=== PATIENT | male | born 1995 | race Caucasian/White ===

== ENCOUNTER 2022-10-14 19:44 | Inpatient (IN) | payer MEDICARE ==
[~2022-10-14] VITALS: Ht 180.3 cm; Wt 90.7 kg
[2022-10-14] MEDS ORDERED: MAGNESIUM/ALUMINUM HYDROXIDE/SIMETHICONE 30ML UDC PO STA (23:21)
[2022-10-14] MEDS ORDERED: ONDANSETRON 4MG ODT PO STA (23:21)
[2022-10-14] MEDS ORDERED: VISCOUS LIDOCAINE 2% 15 ML UDC PO STA (23:21)
[2022-10-14 23:44] LABS: PROTHROMBIN TIME 10.9 sec (9.6-11.0)
[2022-10-14 23:58] LABS: HEMATOCRIT. 46.1 % (42.0-52.0); HEMOGLOBIN. 15.4 g/dL (14.0-18.0); MEAN CORPUSCULAR VOLUME 86.5 fL (80.0-94.0); MEAN PLATELET VOLUME 9.4 fl (7.4-10.4); PLATELET 263 x1000/uL (130-400); RED BLOOD CELL COUNT 5.33 mill/uL (4.7-6.1)
[2022-10-15 00:10] LABS: CHLORIDE 106 mEq/L (98-107)
[2022-10-15 00:18] LABS: ETHANOL BLOOD < 10 mg/dL
[2022-10-15 01:01] LABS: *AMPHETAMINES SCREEN URINE NEGATIVE (NEGATIVE); *BARBITURATES SCREEN URINE NEGATIVE (NEGATIVE); *BENZODIAZEPINES SCREEN URINE NEGATIVE (NEGATIVE); *COCAINE SCREEN URINE NEGATIVE (NEGATIVE); CANNABINOID URINE SCREEN NEGATIVE (NEGATIVE); METHADONE URINE SCREEN NEGATIVE (NEGATIVE); OPIATES URINE SCREEN NEGATIVE (NEGATIVE); PHENCYCLIDINE URINE SCREEN NEGATIVE (NEGATIVE)
[2022-10-15] MEDS ORDERED: HYDROCODONE/ACETAMINOPHEN 5/325MG TABLET PO ONE (03:15)
[2022-10-15 04:56] LABS: PLATELET ESTIMATE NORMAL
[2022-10-15] MEDS ORDERED: MORPHINE SULFATE 4 MG/ML CPJ (NOT FOR IM USE) IV ONE (06:15)
[2022-10-15] MEDS ORDERED: CEFOXITIN SODIUM 2 G in DEXT 5% WATER 100 ML IV SCH (06:15)
[2022-10-15 07:36] LABS: CLARITY URINE CLOUDY (CLEAR); COLOR URINE YELLOW (YELLOW); PH URINE 5.5 (4.5-8.0); PROTEIN URINE NEGATIVE (NEGATIVE); SPECIFIC GRAVITY URINE 1.027 (1.005-1.030)
[2022-10-15 07:37] LABS: KETONES URINE 1+ (NEGATIVE); LEUKOCYTE ESTERASE URINE NEGATIVE (NEGATIVE); NITRITE URINE NEGATIVE (NEGATIVE); OCCULT BLOOD URINE NEGATIVE (NEGATIVE)
[2022-10-15 08:00] VITALS: BP 113/70
[2022-10-15] MEDS ORDERED: ONDANSETRON HCL 4MG/2ML INJ IV PRN ×2 (13:30→17:45)
[2022-10-15] MEDS ORDERED: MORPHINE SULFATE 2 MG/ML CPJ (NOT FOR IM USE) IV PRN (13:30)
[2022-10-15] MEDS ORDERED: NALOXONE HCL 0.4MG/ML VIAL IV PRN (13:45)
[2022-10-15 14:00] VITALS: BP 113/70
[2022-10-15 16:00] VITALS: BP 113/70
[2022-10-15] MEDS ORDERED: ACETAMINOPHEN 325MG TABLET PO PRN ×2 (17:45)
[2022-10-15] MEDS ORDERED: ZOLPIDEM TARTRATE 5MG TABLET PO PRN (17:45)
[2022-10-15] MEDS ORDERED: KETOROLAC 30MG/ML VIAL IV PRN (18:00)
[2022-10-15] MEDS ORDERED: HYDROCODONE/ACETAMINOPHEN 5/325MG TABLET PO PRN (18:00)
[2022-10-15 20:00] VITALS: BP 103/70
[2022-10-15] MEDS: DEXT 5%/0.45% NACL 1000ML 1,000 ML IV SCH (23:42)
[2022-10-16] VITALS (8 sets, daily range): BP systolic 102–106; BP diastolic 59–71
[2022-10-16 06:27] LABS: BASOPHILS % 0.5 % (0.0-2.0); EOSINOPHILS % 2.1 % (0.0-5.0); HEMATOCRIT. 41.3 % (42.0-52.0); HEMOGLOBIN. 14.5 g/dL (14.0-18.0); LYMPHOCYTES % 30.8 % (20.0-50.0); MEAN CORPUSCULAR VOLUME 85.6 fL (80.0-94.0); MEAN PLATELET VOLUME 9.4 fl (7.4-10.4); MONOCYTES % 9.7 % (2.0-8.0); NEUTROPHILS % 56.9 % (40.0-76.0); PLATELET 227 x1000/uL (130-400); RED BLOOD CELL COUNT 4.82 mill/uL (4.7-6.1); RED CELL DISTRIBUTION WIDTH 12.9 % (11.6-14.6)
[2022-10-16 06:35] LABS: CHLORIDE 105 mEq/L (98-107)
[2022-10-16 06:44] LABS: PHOSPHORUS 3.3 mg/dL (2.5-4.9)
[2022-10-16] MEDS ORDERED: PANTOPRAZOLE SODIUM 40 MG/VIAL IV SCH (09:00)
[2022-10-16] MEDS: DEXT 5%/0.45% NACL 1000ML 1,000 ML IV SCH (09:52)
== END 2022-10-16 19:45 | disposition home or self-care (01) | DRG 249 ==
LOC: ER 19:44 → 6EST 10-15 08:50 → EDBEDREQTM 10-15 08:55 → EDBEDREQ 10-15 08:55
PROVIDERS: ADMIT Internal Medicine; ATTEND Internal Medicine
DX: K52.9 Noninfective gastroenteritis and colitis, unspecified (principal); R65.10 Systemic inflammatory response syndrome (SIRS) of non-infectious origin without acute organ dysfunction; K76.0 Fatty (change of) liver, not elsewhere classified; N13.30 Unspecified hydronephrosis; R74.01 Elevation of levels of liver transaminase levels
CPT/HCPCS: 36415; 74176; 76770; 80053; 80305; 80320; 81003; 83735; 84100; 85025; 99285; C9113; J0694; J2270; J7060; Q0162; G0480